=== PATIENT | male | born 1995 | race African-American/Black ===

== ENCOUNTER 2022-03-20 19:30 | Emergency (ER) | payer SELFPAY ==
--- NOTE | 2022-03-20 20:20 | RAD REPORT ---
EXAM DESCRIPTION: CT - Head Brain Wo Cont - 03/20/2022 8:09 pm CLINICAL HISTORY: headache, dizziness Headache, hypertension COMPARISON: <Comparisons> TECHNIQUE: All CT scans are performed using dose optimization technique as appropriate and may inclu de automated exposure control or mA/KV adjustment according to patient size. FINDINGS: No intracranial hemorrhage, hydrocephalus or extra-axial fluid collection.No areas of brai n edema or evidence of midline shift. The paranasal sinuses and mastoids are clear. The calvarium is intact. IMPRESSION: No acute intracranial abnormality.
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
[2022-03-22 06:33] VITALS: BP 141/94; TEMP 97.8; O2SAT 100
== END 2022-03-20 20:39 | disposition home or self-care (01) ==
LOC: ER 19:30
DX: R51.9 Headache, unspecified (principal)
CPT/HCPCS: 70450; 99284